=== PATIENT | female | born 1975 | race Caucasian/White ===

== ENCOUNTER 2016-10-20 22:29 | Emergency (ER) | payer OTHER ==
[~2016-10-20] VITALS: Ht 157.5 cm; Wt 78.9 kg
[2016-10-20 22:56] LABS: HEMATOCRIT 41.4 % (36.0-46.0); MCH 28.8 PG (29.0-34.0); MCHC 33.6 G/DL (30.0-36.0); MCV 85.7 FL (83-99); MEAN PLAT.VOLUME 10.8 uM^3 (9.5-12.4); PLATELET COUNT 291 K/uL (156-360); RBC DIS.WIDTH-CV 12.6 % (11.8-14.6); RED BLOOD COUNT 4.83 M/uL (3.80-5.20); WHITE BLOOD COUNT 11.1 K/uL (4.1-10.2)
[2016-10-20 23:05] LABS: CHLORIDE 107 mEq/L (99-109); POTASSIUM 3.9 mEq/L (3.7-5.4); SODIUM 140 mEq/L (136-147)
[2016-10-20 23:07] LABS: GLUCOSE 108 mg/dL (70-99)
[2016-10-20 23:08] LABS: ANION GAP 8 MEQ/L (2-14)
[2016-10-20 23:10] LABS: GFR ESTIMATE (CALCULATED) > 59 mL/min/
[2016-10-20 23:11] LABS: UREA NITROGEN (BUN) 13 mg/dL (9-23)
[2016-10-20] MEDS ORDERED: NAPROSYN500 MG PO (23:24)
[2016-10-20 23:31] LABS: INTER. NORMALIZED RATIO 0.9; PROTHROMBIN TIME 9.6 (9.2-11.2)
[2016-10-20 23:32] VITALS: BP 129/84
== END 2016-10-20 23:38 | disposition home or self-care (01) ==
LOC: EME 22:29
DX: S86.812A Strain of other muscle(s) and tendon(s) at lower leg level, left leg, initial encounter (principal)
CPT/HCPCS: 80048; 85027; 85610; 93971; 99281; 99283